=== PATIENT | female | born 1935 | race Caucasian/White ===

== ENCOUNTER 2019-10-27 03:29 | Emergency (ER) | payer OTHER ==
[~2019-10-27] VITALS: Ht 165.1 cm; Wt 56.7 kg
[2019-10-27] MEDS ORDERED: NAPROXEN500 MG PO (05:12)
== END 2019-10-27 05:42 | disposition home or self-care (01) ==
LOC: ER 03:29
DX: S80.01XA Contusion of right knee, initial encounter (principal); W18.09XA Striking against other object with subsequent fall, initial encounter; Y93.89 Activity, other specified; Y92.89 Other specified places as the place of occurrence of the external cause; Y99.8 Other external cause status